=== PATIENT | male | born 1965 | race Caucasian/White ===

== ENCOUNTER 2018-10-03 11:40 | Emergency (ER) | payer OTHER ==
[~2018-10-03] VITALS: Ht 172.7 cm; Wt 113.4 kg
[2018-10-03] MEDS ORDERED: NORVASC5 MG PO (11:52)
[2018-10-03] MEDS ORDERED: AUGMENTIN 875-1 EACH PO (12:17)
[2018-10-03 12:30] VITALS: BP 176/94
== END 2018-10-03 12:31 | disposition home or self-care (01) ==
LOC: M.ERS 11:40
DX: S81.851A Open bite, right lower leg, initial encounter (principal); I10 Essential (primary) hypertension; W54.0XXA Bitten by dog, initial encounter; Y93.89 Activity, other specified; Y92.89 Other specified places as the place of occurrence of the external cause; Y99.8 Other external cause status